=== PATIENT | female | born 1975 | race Caucasian/White ===

== ENCOUNTER 2022-07-26 21:29 | Emergency (ER) | payer MEDICAID, OTHER ==
[~2022-07-26] VITALS: Ht 149.9 cm; Wt 59.0 kg
[~2022-07-26 21:29] MED LIST: ACET-10509 PO; EXEM25TA5 PO; [UNRECOGNIZED DRUG - REMARK]
[2022-07-26 21:30] VITALS: BP 161/90
--- NOTE | 2022-07-26 21:33 | NUR ---
to lobby a/w bed ambulatory
--- NOTE | 2022-07-26 22:00 | NUR ---
PT AMBULATES WITH STEADY GAIT TO BED 9
[2022-07-26] MEDS ORDERED: KETOROLAC 60 MG/2 ML VIAL IM ONE (22:05)
--- NOTE | 2022-07-26 22:11 | NUR ---
PT MEDICATED PER ORDERS GIVEN
--- NOTE | 2022-07-26 22:50 | NUR ---
[facility]OB DONOHUE EXAMINING PT
[2022-07-26] MEDS ORDERED: IBUP-2213 PO (22:57)
[2022-07-26 23:10] VITALS: BP 158/87
--- NOTE | 2022-07-26 23:10 | NUR ---
Patient discharged with v/s stable. Written and verbal after care instructions given and explained. Patient verbalized understanding. Ambulatory with steady gait. All questions addressed prior to discharge. Advised to follow up with PMD.
== END 2022-07-26 23:10 | disposition home or self-care (01) ==
LOC: MED 21:29
DX: S20.212A Contusion of left front wall of thorax, initial encounter (principal); R10.9 Unspecified abdominal pain; Z85.3 Personal history of malignant neoplasm of breast; Z98.890 Other specified postprocedural states; W18.30XA Fall on same level, unspecified, initial encounter; Y93.89 Activity, other specified; Y92.89 Other specified places as the place of occurrence of the external cause; Y99.8 Other external cause status
CPT/HCPCS: 81002; 81025; 96372; 99283; J1885; 99282

== ENCOUNTER 2023-12-05 00:26 | Emergency (ER) | payer OTHER ==
[~2023-12-05] VITALS: Ht 152.4 cm; Wt 62.6 kg
[~2023-12-05 00:26] MED LIST changes: +IBUP-2213 PO
[2023-12-05 00:35] VITALS: BP 132/76; PULSE 103; RESP 18; TEMP 98.7; O2SAT 96
[2023-12-05 02:10] LABS: APPEARANCE,URINE CLEAR (CLEAR); BILIRUBIN,URINE NEGATIVE (NEGATIVE); BLOOD, URINE 3+ (NEGATIVE); COLOR,URINE YELLOW (YELLOW); LEUKOCYTE ESTERASE ,URINE NEGATIVE (NEGATIVE); NITRITE, URINE NEGATIVE (NEGATIVE); PROTEIN,URINE NEGATIVE (NEGATIVE); UGLUCOSE NEGATIVE (NEGATIVE); UROBILINOGEN,URINE 0.2 EU/dL (0.2 - 1)
[2023-12-05 02:26] LABS: BACTERIA,URINE 1+ /HPF (None Seen); SQUAMOUS EPITHELIAL CELL,UR 4-10 (MOD) /LPF (0-3 (FEW)); WBC,URINE 0-5 /HPF (0-5)
[2023-12-05 02:45] LABS: BASOPHILS # (AUTO) 0.1 K/uL (0.00-0.22); BASOPHILS % (AUTO) 0.6 % (0.0-2.0); EOSINOPHILS # (AUTO) 0.1 K/uL (0-0.4); EOSINOPHILS % (AUTO) 1.1 % (0.0-4.0); HEMATOCRIT 40.6 % (36-48); LYMPHOCYTES # (AUTO) 1.5 K/uL (2.5-16.5); MEAN CORPUSCULAR HEMOGLOBIN 31 pg (27-31); MEAN CORPUSCULAR HGB CONC 35 g/dL (33-37); MEAN CORPUSCULAR VOLUME 88.1 fL (80-94); MONOCYTES % (AUTO) 10.6 % (1.7-9.3); NEUTROPHILS # (AUTO) 6.7 K/uL (1.8-7.7); NEUTROPHILS % (AUTO) 71.7 % (42.2-75.2); PLATELET COUNT (AUTO) 302 K/uL (140-450); RED CELL DISTRIBUTION WIDTH 12.7 % (11.6-13.7); WHITE BLOOD COUNT (AUTO) 9.4 K/uL (4.8-10.8)
[2023-12-05 03:04] LABS: ANION GAP 11.2 (8-16); CALCIUM 8.6 mg/dL (8.5-10.1); CARBON DIOXIDE 25.9 mmol/L (21-32); CREATININE 0.7 mg/dL (0.6-1.3); POTASSIUM 4.1 mmol/L (3.5-5.1)
[2023-12-05 03:11] LABS: ALBUMIN 3.3 g/dL (3.4-5.0); BILIRUBIN,DIRECT 0.1 mg/dL (0.0-0.3); TOTAL BILIRUBIN 0.4 mg/dL (0.0-1.0); TOTAL PROTEIN, SERUM 9.2 g/dL (6.4-8.2)
[2023-12-05] MEDS: ONDANSETRON 4 MG ODT PO ONE (03:39)
[2023-12-05] MEDS: ALUMINUM HYD/MAG/SIMETHICONE 30 ML UDC PO ONE (03:39)
[2023-12-05] MEDS ORDERED: FAMO-90 PO (03:56)
[2023-12-05] MEDS ORDERED: SUCR1TAB35 PO (03:56)
[2023-12-05] MEDS ORDERED: ONDA-188 SL (03:56)
[2023-12-05 04:00] VITALS: BP 119/79; PULSE 85; RESP 18; TEMP 98.2; O2SAT 99
== END 2023-12-05 04:00 ==
LOC: MED 00:26
DX: K29.70 Gastritis, unspecified, without bleeding (principal); R79.89 Other specified abnormal findings of blood chemistry; Z79.899 Other long term (current) drug therapy; Z98.890 Other specified postprocedural states
CPT/HCPCS: 36415; 80048; 80076; 81001; 81025; 83690; 85025; 99283; Q0162

== ENCOUNTER 2024-05-08 21:51 | Inpatient (IN) | payer OTHER ==
[~2024-05-08] VITALS: Ht 149.9 cm; Wt 59.0 kg
[~2024-05-08 21:51] MED LIST changes: +FAMO-90 PO; +ONDA-188 SL; +SUCR-3 PO
[2024-05-08 21:54] VITALS: BP 140/70; PULSE 63; RESP 18; TEMP 96.6; O2SAT 98
[2024-05-08 22:27] LABS: BASOPHILS % (AUTO) 0.6 % (0.0-2.0); EOSINOPHILS # (AUTO) 0.4 K/uL (0-0.4); HEMATOCRIT 35.5 % (36-48); LYMPHOCYTES # (AUTO) 2.7 K/uL (2.5-16.5); LYMPHOCYTES % (AUTO) 39.3 % (20.5-51.1); MEAN CORPUSCULAR HEMOGLOBIN 30 pg (27-31); MEAN CORPUSCULAR HGB CONC 34 g/dL (33-37); MEAN CORPUSCULAR VOLUME 89.2 fL (80-94); MONOCYTES # (AUTO) 0.8 K/uL (0.8-1.0); MONOCYTES % (AUTO) 11.7 % (1.7-9.3); NEUTROPHILS # (AUTO) 2.9 K/uL (1.8-7.7); NEUTROPHILS % (AUTO) 42.4 % (42.2-75.2); PLATELET COUNT (AUTO) 298 K/uL (140-450); RED BLOOD CELL COUNT(AUTO) 3.98 MIL/uL (4.20-5.40); RED CELL DISTRIBUTION WIDTH 12.5 % (11.6-13.7); WHITE BLOOD COUNT (AUTO) 6.9 K/uL (4.8-10.8)
[2024-05-08 22:27] LABS: APPEARANCE,URINE CLEAR (CLEAR); BILIRUBIN,URINE NEGATIVE (NEGATIVE); BLOOD, URINE TRACE-I (NEGATIVE); COLOR,URINE YELLOW (YELLOW); LEUKOCYTE ESTERASE ,URINE NEGATIVE (NEGATIVE); NITRITE, URINE NEGATIVE (NEGATIVE); PROTEIN,URINE NEGATIVE (NEGATIVE); UGLUCOSE NEGATIVE (NEGATIVE)
[2024-05-08 22:34] LABS: BACTERIA,URINE 10-30 (MOD) /HPF (None Seen); MUCUS,URINE 1+ /LPF (None Seen); SQUAMOUS EPITHELIAL CELL,UR 0-3 (FEW) /LPF (0-3 (FEW)); WBC,URINE 0-5 /HPF (0-5)
[2024-05-08 22:41] LABS: ANION GAP 13.1 (8-16); CALCIUM 8.9 mg/dL (8.5-10.1); CARBON DIOXIDE 27.6 mmol/L (21-32); CREATININE 0.6 mg/dL (0.6-1.3); POTASSIUM 3.7 mmol/L (3.5-5.1)
[2024-05-08 22:56] LABS: ALBUMIN 3.3 g/dL (3.4-5.0); BILIRUBIN,DIRECT 0.1 mg/dL (0.0-0.3); TOTAL BILIRUBIN 0.3 mg/dL (0.0-1.0); TOTAL PROTEIN, SERUM 7.2 g/dL (6.4-8.2)
[2024-05-09] MEDS ORDERED: POTASSIUM CHLORIDE 10 MEQ TABER PO PRN (05:50)
[2024-05-09] MEDS ORDERED: MORPHINE SULFATE 4 MG/ML SYR IVP PRN (05:50)
[2024-05-09] MEDS ORDERED: ACETAMINOPHEN 325 MG TAB PO PRN (05:50)
[2024-05-09] MEDS ORDERED: MAG SULF 2000 MG/WATER PREMIX 50 ML IV PRN (05:50)
[2024-05-09] MEDS ORDERED: KCL 20 MEQ IN 100 mL PREMIX 200 ML IV PRN (05:50)
[2024-05-09] MEDS ORDERED: MAGNESIUM OXIDE 400 MG TAB PO PRN (05:50)
[2024-05-09 06:56] LABS: BASOPHILS % (AUTO) 0.8 % (0.0-2.0); EOSINOPHILS # (AUTO) 0.4 K/uL (0-0.4); EOSINOPHILS % (AUTO) 6.2 % (0.0-4.0); HEMATOCRIT 36.7 % (36-48); HEMOGLOBIN 12.6 g/dL (12.0-16.0); LYMPHOCYTES # (AUTO) 2.2 K/uL (2.5-16.5); LYMPHOCYTES % (AUTO) 36.7 % (20.5-51.1); MEAN CORPUSCULAR HEMOGLOBIN 30 pg (27-31); MEAN CORPUSCULAR HGB CONC 34 g/dL (33-37); MEAN CORPUSCULAR VOLUME 88.6 fL (80-94); MONOCYTES # (AUTO) 0.5 K/uL (0.8-1.0); NEUTROPHILS # (AUTO) 2.9 K/uL (1.8-7.7); NEUTROPHILS % (AUTO) 48.3 % (42.2-75.2); PLATELET COUNT (AUTO) 288 K/uL (140-450); RED BLOOD CELL COUNT(AUTO) 4.14 MIL/uL (4.20-5.40); RED CELL DISTRIBUTION WIDTH 12.2 % (11.6-13.7)
[2024-05-09 07:42] LABS: ANION GAP 12.1 (8-16); CALCIUM 8.7 mg/dL (8.5-10.1); CARBON DIOXIDE 25.9 mmol/L (21-32); CREATININE 0.6 mg/dL (0.6-1.3); TOTAL BILIRUBIN 0.3 mg/dL (0.0-1.0); TOTAL PROTEIN, SERUM 6.7 g/dL (6.4-8.2)
[2024-05-09 08:52] VITALS: O2SAT 97
[2024-05-09 09:05] VITALS: BP 133/61; PULSE 64; RESP 18; TEMP 98; O2SAT 97
[2024-05-09] MEDS: PANTOPRAZOLE 40 MG INJ VIAL IVP SCH (10:18)
[2024-05-09] MEDS: ONDANSETRON 4 MG/2 ML VIAL IVP PRN (11:06)
[2024-05-09 12:00] VITALS: BP 116/62; PULSE 63; RESP 18; TEMP 97.8; O2SAT 99
[2024-05-09 20:00] VITALS: PULSE 71; RESP 19; O2SAT 97
[2024-05-09] MEDS: MEDS-TO-BEDS MC SCH (21:14)
[2024-05-10] VITALS: BP 118/65; PULSE 71; RESP 19; TEMP 97.7; O2SAT 97
[2024-05-10] MEDS: LORazepam 1 MG TAB PO PRN (02:00)
[2024-05-10] MEDS: HYDROcodone/APAP 5/325 MG 1 TAB TAB PO PRN (02:03)
[2024-05-10 06:50] LABS: BASOPHILS % (AUTO) 0.6 % (0.0-2.0); EOSINOPHILS # (AUTO) 0.3 K/uL (0-0.4); EOSINOPHILS % (AUTO) 4.4 % (0.0-4.0); HEMATOCRIT 36.8 % (36-48); HEMOGLOBIN 12.7 g/dL (12.0-16.0); LYMPHOCYTES # (AUTO) 2.8 K/uL (2.5-16.5); LYMPHOCYTES % (AUTO) 37.3 % (20.5-51.1); MEAN CORPUSCULAR HEMOGLOBIN 31 pg (27-31); MEAN CORPUSCULAR HGB CONC 34 g/dL (33-37); MEAN CORPUSCULAR VOLUME 89.8 fL (80-94); MONOCYTES # (AUTO) 0.7 K/uL (0.8-1.0); NEUTROPHILS # (AUTO) 3.6 K/uL (1.8-7.7); NEUTROPHILS % (AUTO) 48.7 % (42.2-75.2); PLATELET COUNT (AUTO) 306 K/uL (140-450); RED CELL DISTRIBUTION WIDTH 12.1 % (11.6-13.7); WHITE BLOOD COUNT (AUTO) 7.5 K/uL (4.8-10.8)
[2024-05-10 07:23] LABS: ANION GAP 9.6 (8-16); CALCIUM 8.6 mg/dL (8.5-10.1); CARBON DIOXIDE 29.2 mmol/L (21-32); CREATININE 0.7 mg/dL (0.6-1.3); POTASSIUM 3.8 mmol/L (3.5-5.1); TOTAL BILIRUBIN 0.2 mg/dL (0.0-1.0)
[2024-05-10 08:00] VITALS: BP 132/73; PULSE 67; RESP 18; TEMP 97.9; O2SAT 96
[2024-05-10] MEDS ORDERED: HYDR-4924 PO (10:51)
== END 2024-05-10 15:16 | disposition home or self-care (01) ==
LOC: MED 21:51 → MMU 05-09 05:52 → MTU 05-09 05:52
PROVIDERS: ADMIT Internal Medicine; ATTEND Internal Medicine
DX: K80.70 Calculus of gallbladder and bile duct without cholecystitis without obstruction (principal); E44.0 Moderate protein-calorie malnutrition; R74.01 Elevation of levels of liver transaminase levels; Z90.12 Acquired absence of left breast and nipple; Z79.899 Other long term (current) drug therapy
CPT/HCPCS: 36415; 76705; 80048; 80053; 80076; 81001; 82150; 82948; 83690; 85025; 87081; 87086; 99285; J1644; J2405; J2470; Q0092